=== PATIENT | female | born 1950 | race Caucasian/White ===

== ENCOUNTER 2019-01-08 10:57 | Emergency (ER) | payer MEDICARE, OTHER, SELFPAY ==
[2019-01-08 10:59] VITALS: BP 130/72; PULSE 82; RESP 18; TEMP 36.9; O2SAT 97; BMI 40.4
[2019-01-08] MEDS: MethylPREDNISolone 125 MG/2 ML Vial IV (11:34)
[2019-01-08] MEDS: DiphenhydrAMINE 50 MG/ML Syringe 25 MG IV ×2 (11:34→12:59)
[2019-01-08] MEDS: Famotidine 200 MG/20 ML MDV 20 MG in 0.9% Normal Saline (Pres. free 8 ML 300 MG IV (11:39)
[2019-01-08 12:58] VITALS: BP 137/74; PULSE 78; RESP 16; O2SAT 98
[2019-01-08 14:00] VITALS: BP 134/74; PULSE 77; RESP 16; O2SAT 98
--- NOTE | 2019-01-08 14:48 | ED.VIS.GEN ---
History of Present Illness Chief Complaint: Allergic Reaction Informant: Patient Onset: Days - 5 days Context: Gradual Onset Current Severity: Moderate Maximum Severity: Moderate Narrative: Patient presents with allergic reaction started 5 days ago. 1 week ago she had a CT scan with IV contrast. She is a known allergy to IV contrast and was premedicated. 3 days later she started to break out in a rash. She now has a rash consistent with urticaria over her upper trunk and upper extremities. She also has erythema noted onto her face. [facility]. She was given Vistaril, prednisone, and topical cream. Patient reports no improvement. She reports some slight scratchiness to her throat, but no difficulty swallowing or breathing. - Past Medical History (1) Hypertension Status: Chronic (2) Diabetes Status: Chronic (3) Hx of cholecystectomy Status: Chronic Past Medical History - Allergies and Home Meds Allergies/Adverse Reactions: Allergies Iodinated Contrast Media [CONTRASTS] Allergy (Verified 01/08/19 11:02) Rash meloxicam Allergy (Verified 01/08/19 11:02) Other meperidine [From Demerol] Allergy (Verified 01/08/19 11:02) Other mometasone furoate [From Nasonex] Allergy (Verified 01/08/19 11:02) Other Primary Care Physician: [facility] CASH [Other] - 3-5 Days Surgical History: cholecystectomy Lives: Spouse/ Significant Other Smoking Status: Former smoker Review of Systems General: Denies: Chills, Fever Eyes: Denies: Visual changes - bilaterally ENT: Reports: Sore throat - Scratchy throat. Denies: Bilateral ear pain Cardiovascular: Denies: Chest pain Respiratory: Denies: Dyspnea, Cough Gastrointestinal: Denies: Abdominal pain, Nausea, Vomiting Musculoskeletal: Denies: Extremity Pain Skin: Reports: Rash Neurological: Denies: Headache Allergy: Reports: Uticaria Physical Exam Vital Signs/Narrative: Vital Signs Temp Pulse Resp BP Pulse Ox 01/08/19 14:00 77 16 134/74 H 98 01/08/19 12:58 78 16 137/74 H 98 01/08/19 10:59 98.5 F 82 18 130/72 H 97 Inital Vital Signs reviewed: Yes General: Well nourished, Well developed Head: Normocephalic Eyes: - - Normal posterior pharynx ENT: Moist mucous membranes Neck: Supple Cardiovascular: Regular rate, Regular rhythm Respiratory: No distress, CTA bilaterally Abdomen: Soft, Nontender Skin: - - Urticaria noted over the trunk, face, upper extremities. No open lesions. Neurological: Alert, Oriented x3 Psychological: Normal affect Diagnostic/Tx/Re-eval - Medical Decision Making Patient was given IV Solu-Medrol, Benadryl, Pepcid. On repeat evaluation she had only minimal improvement. She is given a second dose of IV Benadryl. At this time she does have some improvement noted in her symptoms. She is given a liter of IV fluids. She will be written for a new prednisone taper starting at 60 mg. She will stop the current prednisone taper that she is on. She is written for Benadryl and Pepcid. ED Disposition - Plan for ED Patient: Disposition: Home or Assisted Living Diagnosis: Allergic reaction Instructions: ALLERGIC REACTION, Other (General) Prescriptions: DiphenhydrAMINE [Benadryl] 50 mg PO TID PRN PRN #30 cap PRN Reason: Rash/Topical Irritation Transmission Status: Received by [id number] Famotidine [Pepcid] 20 mg PO BID #28 tab Transmission Status: Received by [id number] Referrals: [facility] [Other] - 3-5 Days
[2019-01-08] MEDS: 0.9% Normal Saline 1,000 ML 999 ML IV (14:55)
[2019-01-08 15:40] VITALS: BP 128/70; PULSE 76; RESP 17; O2SAT 98
== END 2019-01-08 15:41 | disposition home or self-care (01) ==
PROVIDERS: Emergency Provider Emergency Medicine
DX: L50.0 Allergic urticaria (principal); J02.9 Acute pharyngitis, unspecified; I10 Essential (primary) hypertension; E11.9 Type 2 diabetes mellitus without complications; Z79.01 Long term (current) use of anticoagulants; Z79.84 Long term (current) use of oral hypoglycemic drugs; Z79.899 Other long term (current) drug therapy; Z87.891 Personal history of nicotine dependence
CPT/HCPCS: 96361; 96374; 96375; 96376; 99283; J7030; A4216; J3490